=== PATIENT | female | born 1985 | race Caucasian/White ===

== ENCOUNTER 2020-06-11 01:11 | Outpatient (CLI) | payer BC, SELFPAY ==
[2020-06-11 18:47] LABS: SARS-CoV-2 RNA PCR Negative
== END 2020-06-11 01:12 | disposition home or self-care (01) ==
LOC: ANHCOVIDDT 01:11
PROVIDERS: Family Provider Family Medicine Adolescent Medicine; PCP Internal Medicine; Visit Provider Obstetrics & Gynecology
DX: Z01.812 Encounter for preprocedural laboratory examination (principal); Z20.822 Contact with and (suspected) exposure to COVID-19
CPT/HCPCS: C9803; U0003; U0005

== ENCOUNTER 2020-06-11 09:55 | Outpatient (CLI) | payer BC, SELFPAY | END 2020-06-11 09:56 | disposition home or self-care (01) | PROVIDERS: PCP Internal Medicine; Visit Provider Obstetrics & Gynecology | DX: Z01.818 Encounter for other preprocedural examination (principal) | CPT/HCPCS: 36415; 86850; 86900; 86901 ==

== ENCOUNTER 2020-06-15 01:16 | Day surgery (SDC) | payer BC, SELFPAY ==
[2020-06-10 13:14] VITALS: BMI 25.6
--- NOTE | 2020-06-15 08:36 | PM.IMHP ---
H&P: HPI History of Present Illness Date/Time: 06/15/20 08:36 Chief Complaint: Pain Narrative: 35 y/o who has had a tubal ligation. She has left sided pelvic pain that is always present, but waxes and wanes. Her pain worsens during her menses. She has deep dyspareunia. She has no dysuria, hematuria or hematochezia. Pelvic ultrasound shows functional adnexal change, but is otherwise unremarkable. Because of the longstanding nature of her complaints, she is interested in surgical evaluation of her pain. Review of Systems Review of Systems: All systems reviewed & are unremarkable except as noted in HPI and below PMFSH Surgical History Surgical History History of breast augmentation History of tubal ligation Social History Social History Smoking packs per day: 1 Smoking cigarettes per day: 20.0 Years smoked: 10 Smoking pack-years: 10.00 Smoking status: Former smoker Tobacco type: cigarettes Living arrangements: with family Spiritual care concerns: No Meds Home Medications and Allergies Home Medications Medication Instructions Recorded Confirmed Type lactobacillus combination no.4 3,000 mmu cells PO DAILY 06/10/20 06/10/20 History [Probiotic] Allergies Allergy/AdvReac Type Severity Reaction Status Date / Time No Known Allergies Allergy Verified 06/10/20 12:49 Exam Const: Orientation/consciousness: patient oriented x3 Other: Well-developed, well-nourished female in no acute distress. Neck: Thyroid: thyroid normal Lymphatic: no lymphadenopathy noted (in neck, axilla or inguinal nodes) Resp: Effort & Inspection: normal respiratory effort Auscultation: clear to auscultation bilaterally Cardio: Rate: regular rate Rhythm: regular rhythm Heart sounds: S1 normal heart sound present and S2 normal heart sound present GI: Other: ABD: Soft, nontender, nondistended. No guarding or rebound tenderness. No hepatosplenomegaly. : General: Yes no CVA tenderness Other: External genitalia: normal female hair distribution, without lesion. Urethral meatus: no lesion, non prolapsed. Bladder: no mass, nontender Vagina: well-estrogenized, without lesion or discharge. No cystocele or rectocele. Cervix: no lesion or discharge. Uterus: small, anteverted, freely mobile, nontender Adnexa: no mass or tenderness on the right. There is no mass on the left, but some tenderness is noted on deep palpation. Anus/perineum: no lesions, nontender Back/Spine/Pelvis: Back: no CVA tenderness Skin: General skin exam: normal color and no rashes or lesions noted Neuro: General: patient oriented x3 Extrem: Other: Extremities: nontender with no edema Psych: Mental Status: mental status grossly normal Affect: normal affect Assessment and Plan Assessment and plan (1) Pelvic pain: Code(s): R10.2 - Pelvic and perineal pain Status: Acute Additional Plan A: Longstanding pelvic pain P: We have reviewed medical vs surgical management strategies. She is interested in surgical evaluation and treatment of her problem. Specifically, I have offered her a diagnostic laparoscopy. She understands risks of surgery to include risks of anesthesia, risks of pain, infection, bleeding, blood products, thromboembolic phenomena and damage to adjacent structures such as bowel, bladder, ureters, blood vessels and nerves. She understands all these risks and elects to proceed with surgery.
[2020-06-15 10:10] VITALS: BP 96/78; PULSE 69; RESP 16; TEMP 37.1; O2SAT 100
[2020-06-15] MEDS: ACETAMINOPHEN 500 MG TABLET 1000 MG PO (10:26)
--- NOTE | 2020-06-15 11:00 | WPDANESEPPF ---
Anes - Initial Pre Proc Eval Procedure: Operation Date: 06/15/20 12:00 Proposed Procedures p Diagnostic Laparoscopy With Possible Left Salpingo-Oophorectomy - Ciro Burger MD Date/Time: 06/15/20 11:00 Surgeon: Ciro Burger MD Pre Op Diagnosis: Left Sided Pelvic Pain, Dyspareunia Patient Data Age: 35 Gender: F Height: 5 ft 2 in Weight: 63.6 kg Allergies Allergy/AdvReac Type Severity Reaction Status Date / Time No Known Allergies Allergy Verified 06/15/20 10:17 Home Medications Medication Instructions Recorded Confirmed Type lactobacillus combination no.4 3,000 mmu cells PO DAILY 06/10/20 06/15/20 History [Probiotic] Patient hx anesthesia problems: none Family hx anesthesia problems: none PMFSH Past Medical History Medical History (Updated 06/15/20 @ 11:00 by Clayton Castrejon MD) Asthma exercise induced Surgical History Surgical History History of breast augmentation History of tubal ligation Social History Social History Smoking packs per day: 1 Smoking cigarettes per day: 20.0 Years smoked: 10 Smoking pack-years: 10.00 Smoking status: Former smoker Tobacco type: cigarettes Living arrangements: with family Spiritual care concerns: No Anes - Eval Final PreProcedure Day of Procedure 06/15/20 11:00 Patient weight: normal Heart: regular rate and rhythm Lungs: clear to auscultation Airway: Mallampati scale class II Neurological: alert and oriented Last oral intake: >/= 8 hours ASA classification: II Emergent: no Anesthetic plan: proceed Anesthesia type and monitoring: general ETT and standard monitoring Informed Consent: The patient's anesthetic plan and its attendant risks and benefits were discussed with the patient/family/POA. Questions were solicited and answers provided to the satisfaction of the patient/family/POA.
[2020-06-15] MEDS: LACTATED RINGERS 1,000 ML 30 ML IV CONT ×2 (11:09→13:01)
[2020-06-15] MEDS: KETOROLAC 15 MG/ML VIAL (*BKC) IV PUSH (11:10)
--- NOTE | 2020-06-15 11:57 | WPDHPUPDATE1 ---
History and Physical Update Update Date/Time: 06/15/20 11:57 History and Physical has been reviewed, including an updated exam of the patient. There are NO changes in the patient's condition. Risks, benefits, and alternatives have been discussed and questions answered. Patient agrees to proceed with procedure.
--- NOTE | 2020-06-15 12:54 | PM.PROC ---
Procedure Note - Detailed Date of procedure: 06/15/20 Pre-op diagnosis: Left Sided Pelvic Pain, Dyspareunia Post-op diagnosis: same Procedure performed: Diagnostic laparoscopy Implants: The patient was taken to the operating room where general endotracheal anesthesia was administered. She was prepared and draped in the usual sterile fashion in the dorsal lithotomy position. The bladder was drained with a red rubber catheter. A sterile speculum was inserted into the vagina and the anterior lip of the cervix was grasped with a single-toothed tenaculum. The acorn uterine manipulator was placed. The speculum was withdrawn. Gloves were changed and attention was turned to the abdomen. An infraumbilical skin incision was made with a scalpel. The abdomen was tented and a 5 millimeter bladeless trocar trocar was advanced under direct laparoscopic visualization. Pneumoperitoneum was administered using carbon dioxide gas. A survey of the pelvis and abdomen yielded the findings noted above. Hemostasis was excellent. The trocar was withdrawn and the gas was allowed to escape. The skin incision was reapproximated using 4-0 Vicryl in interrupted subcuticular fashion. Dermaflex was applied externally. The vaginal instrumentation was withdrawn and hemostasis was excellent here as well. Sponge, lap, needle and instrument counts were correct. The patient was awakened and taken to recovery in stable condition. I was present and scrubbed through the entire procedure. Anesthesia: GETA Surgeon: Ciro Burger MD Estimated blood loss (mL): 5 Drains: No Packing: No Pathology: none sent Complications: None Condition: stable Disposition: PACU Findings: Normal-appearing RUQ anatomy. Normal vermiform appendix. Fallopian tubes demonstrate evidence of prior tubal ligation bilaterally. The uterus, anterior and posterior cul de sac, bilateral uterosacral and round ligaments were all unremarkable. No source of her pain could be identified on laparoscopy today.
[2020-06-15 13:01] VITALS: BP 112/69; PULSE 71; RESP 12; TEMP 36.3; O2SAT 100
[2020-06-15 13:15] VITALS: BP 111/69; PULSE 48; RESP 14; O2SAT 100
[2020-06-15 13:30] VITALS: BP 112/66; PULSE 49; RESP 14; O2SAT 100
[2020-06-15 13:40] VITALS: BP 144/68; PULSE 70; RESP 16
[2020-06-15] MEDS: oxyCODONE HCL (*CRX) 5 MG TAB IR PO (13:57)
[2020-06-15 14:10] VITALS: BP 103/61; PULSE 45; RESP 14
== END 2020-06-15 14:50 | disposition home or self-care (01) ==
PROVIDERS: Family Provider Family Medicine Adolescent Medicine; PCP Internal Medicine; Visit Provider Obstetrics & Gynecology
PROC: (CPT 49320; principal; 2020-06-15 12:00)
DX: R10.2 Pelvic and perineal pain (principal); N94.10 Unspecified dyspareunia; Z87.891 Personal history of nicotine dependence
CPT/HCPCS: 49320; 36415; 86850; 86900; 86901; A9270; C9803; J0330; J1100; J1885; J2250; J2405; J2704; J2710; J3010; J7030; J7120; U0003; U0005